=== PATIENT | female | born 1995 | race Caucasian/White ===

== ENCOUNTER 2017-04-08 23:12 | Inpatient (IN) | payer BC ==
[2017-04-08] MEDS ORDERED: Lidocaine 1% 50 ML MDV INJECT PRN (23:42)
[2017-04-08] MEDS ORDERED: Butorphanol 1 MG/ML SDV IVPUSH PRN (23:42)
[2017-04-08] MEDS ORDERED: Sodium Chloride 0.9% 2.5 ML Syringe FLUSH PRN (23:42)
[2017-04-08] MEDS ORDERED: Sodium Chloride 0.9% 10 ML Syringe FLUSH PRN (23:42)
[2017-04-08] MEDS ORDERED: Carboprost Tromethamine 250 MCG/1 ML Amp IM PRN (23:42)
[2017-04-08] MEDS ORDERED: Methylergonovine 0.2 MG/1 ML Amp IM PRN (23:42)
[2017-04-08] MEDS ORDERED: Water For Irrigation,Sterile 1,000 ML Container IRR PRN (23:42)
[2017-04-08] MEDS ORDERED: Misoprostol 200 MCG Tab PO PRN (23:42)
[2017-04-08] MEDS ORDERED: Nalbuphine 10 MG/1 ML Vial IVPUSH PRN (23:42)
[2017-04-08] MEDS ORDERED: Oxytocin/Lactated Ringers 30 UNIT/500 ML BAG IV SCH (23:45)
[2017-04-09] MEDS: Lactated Ringers 1,000 ML IV SCH ×3 (00:28→01:19)
[2017-04-09] MEDS ORDERED: fentaNYL 100 MCG/2 ML SDV ONE (00:40)
[2017-04-09] MEDS ORDERED: Ropivacaine HCl/PF 100 ML ONE (00:40)
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
[2017-04-09] MEDS ORDERED: Docusate Sodium 100 MG Cap PO PRN (03:44)
[2017-04-09] MEDS ORDERED: Bisacodyl 10 MG Supp RECTAL PRN (03:44)
[2017-04-09] MEDS ORDERED: Lanolin 100% Cream 7 GM Tube TOP PRN (03:44)
[2017-04-09] MEDS ORDERED: Benzocaine/Menthol 20%-0.5% Spray 78 GM Cannister TOP PRN (03:44)
[2017-04-09] MEDS ORDERED: Ibuprofen 400 MG Tab PO PRN (03:44)
[2017-04-09] MEDS ORDERED: Acetaminophen 500 MG Tab PO PRN (03:44)
[2017-04-09] MEDS ORDERED: Witch Hazel Medicated Pads 40/Jar TOP PRN (03:44)
--- NOTE | 2017-04-09 05:08 | PCM48HPAN ---
Post Anesthesia Note - EVALUATION WITHIN 48HRS OF ANESTHETIC Vital Signs in Normal Range: Yes Patient Participated in Evaluation: Yes Respiratory Function Stable: Yes Airway Patent: Yes Cardiovascular Function Stable: Yes Hydration Status Stable: Yes Pain Control Satisfactory: Yes Nausea and Vomiting Control Satisfactory: Yes Mental Status Recovered: Yes - COMMENTS/OBSERVATIONS Free Text/Narrative:: Pt post delivery with no complaints. No apparent anesthesia complications.
--- NOTE | 2017-04-09 05:19 | OR ---
SURGEON: Annette Biswas MD DATE OF PROCEDURE: 04/09/2017 PREOPERATIVE DIAGNOSES: 1. Term at 39 weeks gestation. 2. Spontaneous labor. POSTOPERATIVE DIAGNOSES: 1. Term at 39 weeks gestation. 2. Spontaneous labor. 3. Delivered. PROCEDURES: 1. Spontaneous vaginal delivery. 2. Repair of first-degree perineal laceration. ANESTHESIA: Epidural. ESTIMATED BLOOD LOSS: 150 mL. COMPLICATIONS: None. DISPOSITION: Mother and baby are stable in Labor and Delivery room, bonding. FINDINGS: Male . Weight 3090 g, scores 8 and 9 at one and five minutes respectively. Grossly normal placenta with 3-vessel cord. First-degree perineal laceration. BRIEF HISTORY: Alie is a 22-year-old, G3, P1, who presented on 04/08 at 38 weeks and 6 days gestation with history of regular contractions since 9 p.m.,denied vaginal bleeding, or leakage of fluid and reported movement. Uncomplicated care. GBS negative. On admission, she was found to be 4 cm dilated, 80% effaced, station -3 and was requesting an epidural. She received epidural for pain management and shortly afterward, artificial rupture of membranes was performed with clear amniotic fluid noted. She then progressed nicely to full dilatation within 2 hours of AROM. She commenced pushing, pushed well bringing the head down to a +4 station and was set up for delivery in a modified dorsal lithotomy position. DESCRIPTION OF PROCEDURE: She had a spontaneous vaginal delivery of a live male in direct occipital anterior position, no nuchal cord, clear amniotic fluid at delivery. Anterior and the posterior shoulders and the rest of the baby were delivered without difficulty. Baby was vigorous and cried spontaneously at . The baby was delivered onto the maternal abdomen with the nursery nurse attending to him. Delayed cord clamping was performed, then the cord was double clamped and subsequently cut by the father of the baby. With delivery of the , oxytocin infusion was commenced for active management of third stage of labor. The cord blood and gas samples were obtained. The placenta was delivered by controlled cord traction, appeared to be complete and intact. Uterine massage was performed. The uterus was found to be well contracted. Examination of the perineum revealed a midline first-degree perineal laceration which was repaired with 2-0 Vicryl suture, hemostatic post repair. Uterine massage was reperformed and the uterus was found to be well contracted. The patient tolerated the procedure well. Sponge, instrument, and needle counts were correct at the end of the delivery. DIEGO / JESSICA /[id number] MTDD
[2017-04-09] MEDS: Ibuprofen 800 MG Tab PO PRN ×2 (08:45→14:35)
[2017-04-09] MEDS: Acetaminophen 500 MG Tab PO PRN ×2 (11:22→22:17)
[2017-04-09] MEDS: oxyCODONE 5 MG Tab PO PRN ×2 (17:07→22:15)
[2017-04-10] MEDS: Acetaminophen 500 MG Tab PO PRN (07:34)
[2017-04-10 08:45] VITALS: BP 136/63
--- NOTE | 2017-04-10 11:13 | PCM.PNPP ---
- General Info Date of Service: 04/10/17 Functional Status: Reports: pain controlled, tolerating diet, ambulating, urinating - Review of Systems General: Denies: Fever, Weakness, Fatigue, Chills Pulmonary: Denies: shortness of breath, pleuritic chest pain Cardiovascular: Denies: Chest Pain, Palpitations, Dyspnea on Exertion Gastrointestinal: Reports: Abdominal pain (Afterpain whilst ) Genitourinary: Denies: dysuria, incontinence Neurological: Denies: Headache Psychiatric: Denies: depression - General Info Date of Service: 04/10/17 - Patient Data Vital Signs - most recent: Last Vital Signs Temp 36.6 C 04/10/17 08:00 Pulse 83 04/10/17 08:00 Resp 17 04/10/17 08:00 BP 136/63 04/10/17 08:00 Pulse Ox 97 04/10/17 08:00 Weight - most recent: 194 lb 7.163 oz Lab Results - last 24 hrs: Laboratory Results - last 24 hr 04/10/17 Range/Units 04:48 Hgb 10.6 L (12.0-16.0) g/dL Hct 34.0 L (36.0-46.0) % Med Orders - Current: Current Medications Acetaminophen (Tylenol Extra Strength) 500 mg PO Q4H PRN PRN Reason: Pain Acetaminophen (Tylenol Extra Strength) 1,000 mg PO Q4H PRN PRN Reason: Pain Last Admin: 04/10/17 07:34 Dose: 1,000 mg Benzocaine/Menthol (Dermoplast Pain Relief 20%-0.5% Fenton) 78 gm TOP ASDIRECTED PRN PRN Reason: Perineal Comfort Measure Last Admin: 04/09/17 07:25 Dose: 1 spray Bisacodyl (Dulcolax) 10 mg RECTAL .ONCE PRN PRN Reason: Constipation Docusate Sodium (Colace) 100 mg PO BID PRN PRN Reason: Constipation Last Admin: 04/10/17 07:33 Dose: 100 mg Emollient Ointment (Lansinoh Hpa) 0 gm TOP ASDIRECTED PRN PRN Reason: Sore Nipples Last Admin: 04/09/17 07:25 Dose: 1 gm Ibuprofen (Motrin) 400 mg PO Q4H PRN PRN Reason: Pain Ibuprofen (Motrin) 800 mg PO Q6H PRN PRN Reason: Pain Last Admin: 04/09/17 14:35 Dose: 800 mg Oxycodone HCl (Oxycodone) 5 mg PO Q2H PRN PRN Reason: Pain Last Admin: 04/09/17 22:15 Dose: 5 mg Witch Ana (Tucks) 1 pad TOP ASDIRECTED PRN PRN Reason: comfort care Last Admin: 04/09/17 07:26 Dose: 1 pad Discontinued Medications Butorphanol Tartrate (Stadol) 1 mg IVPUSH Q1H PRN PRN Reason: Pain Carboprost Tromethamine (Hemabate Ds) 250 mcg IM ASDIRECTED PRN PRN Reason: Post Hemorrhage Fentanyl (Sublimaze) Confirm Administered Dose 100 mcg .ROUTE .STK-MED ONE Stop: 04/09/17 00:41 Lactated Ringer's (Ringers, Lactated) 1,000 mls @ 150 mls/hr IV ASDIRECTED JALEN Last Admin: 04/09/17 01:19 Dose: 150 mls/hr Oxytocin/Lactated Ringer's (Pitocin In Lr 30 Units/500 Ml) 30 unit in 500 mls @ 2 mls/hr IV TITRATE JALEN; 2 MUNITS/MIN PRN Reason: Protocol Stop: 04/09/17 23:44 Ropivacaine (Naropin 0.2%) Confirm Administered Dose 100 mls @ as directed .ROUTE .STK-MED ONE Stop: 04/09/17 00:41 Lidocaine HCl (Xylocaine 1%) 50 ml INJECT .ONCE PRN PRN Reason: Laceration repair Methylergonovine Maleate (Methergine) 0.2 mg IM ASDIRECTED PRN PRN Reason: Post Hemorrhage Misoprostol (Cytotec) 200 mcg PO .ONCE PRN PRN Reason: Post Hemorrhage Nalbuphine HCl (Nubain) 10 mg IVPUSH Q1H PRN PRN Reason: Pain (severe 7-10) Stop: 04/09/17 01:43 Sodium Chloride (Saline Flush) 10 ml FLUSH ASDIRECTED PRN PRN Reason: Keep Vein Open Sodium Chloride (Saline Flush) 2.5 ml FLUSH ASDIRECTED PRN PRN Reason: Keep Vein Open Sterile Water (Sterile Water For Irrigation) 1,000 ml IRR ASDIRECTED PRN PRN Reason: delivery - Interaction Disposition, : [place] in Room with Family Infant Interaction: Holding Feeding: Breastfed Infant; Nursed Well Support Person: Significant Other - Recovery Exam Fundal Tone: Firm Fundal Level: 1 Fingerbreadths Below Umbilicus Fundal Placement: Midline Lochia Amount: Scant Lochia Color: Rubra/Red Perineum Description: Intact, Minimal Bruising/Swelling Episiotomy/Laceration: Approximated Bladder Status: Voiding Urinary Elimination: Voided - Exam General: alert, oriented Neck: supple Lungs: Clear to auscultation, Normal respiratory effort Cardiovascular: Regular Rate, Regular Rhythm Abdomen: bowel sounds present, soft, no tenderness, no distension Extremities: no calf tenderness, edema Skin: warm Psy/Mental Status: alert, normal affect, normal mood - Problem List & Annotations (1) Vaginal delivery SNOMED Code(s): 943854110 Code(s): O80 - ENCOUNTER FOR FULL-TERM UNCOMPLICATED DELIVERY Status: Acute Priority: Low Current Visit: No Onset Date: 02/14/14 - Problem List Review Problem List Initiated/Reviewed/Updated: Yes - Assessment Assessment:: PPD#1 s/p , stable, minimal Lochia. Afterpains controlled with simple analgesia Clinically stable for discharge today - Plan Plan:: Discharge instructions reviewed Nothing in the vagina for 6 weeks Bleeding and infection precautions reviewed Continue PNV. Preineal care reviewed Follow up in 2 and 6 weeks
== END 2017-04-10 14:10 | disposition home or self-care (01) | DRG 560 ==
LOC: MW.OBCHECK 23:12 → MW.OB 23:15 → MW.OBCHECK 23:42 → OBSVTOIN 04-09 03:17 → MW.OB 04-09 07:32
PROVIDERS: ADMIT Obstetrics & Gynecology; ATTEND Obstetrics & Gynecology
PROC: 10E0XZZ Delivery of Products of Conception, External Approach (ICD-10-PCS; principal; 2017-04-09)
PROC: 0HQ9XZZ Repair Perineum Skin, External Approach (ICD-10-PCS; 2017-04-09)
PROC: 10907ZC Drainage of Amniotic Fluid, Therapeutic from Products of Conception, Via Natural or Artificial Opening (ICD-10-PCS; 2017-04-09)
DX: O70.0 First degree perineal laceration during delivery (principal); Z3A.39 39 weeks gestation of pregnancy; Z37.0 Single live birth
CPT/HCPCS: 01967; 36415; 51703; 59025; 85014; 85018; 85027; 86850; 86900; 86901; A9270-GY; J7120

== ENCOUNTER 2019-01-20 10:27 | Emergency (ER) | payer BC ==
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
--- NOTE | 2019-01-20 11:33 | CR ---
INDICATION: fell last night COMPARISON: None. FINDINGS: AP and lateral views of the left ankle demonstrate normal osseous mineralization and alignment. No fracture or dislocation. The ankle mortise is intact. Soft tissues are unremarkable. IMPRESSION: No acute osseous abnormality. Dictated by Sathish Go MD @ 01/20/2019 11:30:59 AM Dictated by: Sathish Go MD @ 01/20/2019 11:31:03 (Electronically Signed)
[2019-01-20] MEDS ORDERED: Ibuprofen 800 MG Tab PO ONE (11:57)
[2019-01-20 12:19] VITALS: BP 132/81
== END 2019-01-20 12:20 | disposition home or self-care (01) ==
LOC: MW.ED 10:27
DX: S99.912A Unspecified injury of left ankle, initial encounter (principal); Z88.0 Allergy status to penicillin; Z79.899 Other long term (current) drug therapy; W10.9XXA Fall (on) (from) unspecified stairs and steps, initial encounter
CPT/HCPCS: 73600; 99283; A9270

== ENCOUNTER 2021-07-07 00:35 | Inpatient (IN) | payer OTHER ==
[2021-07-07] MEDS ORDERED: Sodium Chloride 0.9% 2.5 ML Syringe FLUSH PRN (01:37)
[2021-07-07] MEDS ORDERED: Water For Irrigation,Sterile 1,000 ML Container IRR PRN (01:37)
[2021-07-07] MEDS ORDERED: Sodium Chloride 0.9% 10 ML Syringe FLUSH PRN (01:37)
[2021-07-07] MEDS ORDERED: Methylergonovine 0.2 MG/1 ML Amp IM PRN (01:37)
[2021-07-07] MEDS ORDERED: Lidocaine 1% 50 ML MDV INJECT PRN (01:37)
[2021-07-07] MEDS ORDERED: Misoprostol 200 MCG Tab PO PRN (01:37)
[2021-07-07] MEDS ORDERED: Butorphanol 1 MG/ML SDV IVPUSH PRN (01:37)
[2021-07-07] MEDS ORDERED: Sodium Chloride 0.9% 10 ML SDV IV PRN (01:37)
[2021-07-07] MEDS ORDERED: Ondansetron 4 MG/2 ML SDV IVPUSH PRN (01:37)
[2021-07-07] MEDS ORDERED: Tranexamic Acid 1,000 MG in Sodium Chloride 0.9% 100 ML IV PRN (01:37)
[2021-07-07] MEDS ORDERED: Carboprost Tromethamine 250 MCG/1 ML Amp IM PRN (01:37)
[2021-07-07] MEDS ORDERED: Nalbuphine 10 MG/1 ML Vial IVPUSH PRN (01:37)
[2021-07-07] MEDS ORDERED: Oxytocin/0.9 % Sodium Chloride 30 UNIT/500 ML BAG IV SCH (01:45)
[2021-07-07] MEDS ORDERED: Lactated Ringers 1,000 ML IV SCH (01:45)
[2021-07-07] MEDS ORDERED: Oxytocin/0.9 % Sodium Chloride 30 UNIT/500 ML BAG ONE (01:47)
[2021-07-07] MEDS ORDERED: Ibuprofen 800 MG Tab ONE (02:18)
[2021-07-07] MEDS: Ibuprofen 800 MG Tab PO PRN ×3 (02:19→20:12)
--- NOTE | 2021-07-07 02:32 | PCM.DEL ---
<Domi Molina - Last Filed: 07/07/21 02:27> L & D Note - General Info Date of Service: 07/07/21 Mother's Due Date: 07/11/21 - Delivery Note Labor: Spontaneous Delivery Outcome: Livebirth Infant Delivery Method: Spontaneous Vaginal Delivery-Single Presentation: Right Occiput Anterior (LYLE) Nuchal Cord: None Anesthesia Type: None Anesthetic: Lidocaine (Xylocaine) 1% Plain Amniotic Fluid Description: Clear Episiotomy Type: None Laceration: 2nd Degree Placenta: Intact, Spontaneous Cord: 3 Vessels Estimated Blood Loss: 300 Resuscitation Needed: No Nelson: Bulb Syringe Score 1 min: 8 Score 5 min: 9 Delivery Comments (Free Text/Narrative):: 26-year-old s/p uncomplicated spontaneous vaginal delivery. Plans to breastfeed. Blood type O+, Rubella immune, and GBS negative. Apgars 8 & 9, weight 3310 grams. - General Info Date of Service: 07/07/21 Admission Dx/Problem (Free Text): Labor Functional Status: Reports: Pain Controlled - Patient Data Weight - Most Recent: 120.202 kg I&O - Last 24 Hours: Intake & Output 07/06/21 07/06/21 07/07/21 14:59 22:59 06:59 Intake Total 300 Balance 300 Lab Results Last 24 Hours: Laboratory Results - last 24 hr 07/07/21 Range/Units 01:55 WBC 11.32 H (4.0-11.0) K/uL RBC 4.42 (4.30-5.90) M/uL Hgb 12.5 (12.0-16.0) g/dL Hct 37.9 (36.0-46.0) % MCV 85.7 (80.0-98.0) fL MCH 28.3 (27.0-32.0) pg MCHC 33.0 (31.0-37.0) g/dL RDW Std Deviation 44.5 (28.0-62.0) fl RDW Coeff of Rain 14 (11.0-15.0) % Plt Count 228 (150-400) K/uL MPV 10.50 (7.40-12.00) fL Nucleated RBC % 0.0 /100WBC Nucleated RBCs # 0 K/uL Med Orders - Current: Current Medications Butorphanol Tartrate (Butorphanol 1 Mg/Ml Sdv) 1 mg IVPUSH Q1H PRN PRN Reason: Pain (severe 7-10) Carboprost Tromethamine (Carboprost Tromethamine 250 Mcg/1 Ml Amp) 250 mcg IM ASDIRECTED PRN PRN Reason: Post Hemorrhage Oxytocin/Sodium Chloride (Oxytocin 30 Unit/500 Ml-Ns) 30 unit in 500 mls @ 999 mls/hr IV TITRATE [facility] Last Admin: 07/07/21 01:54 Dose: 999 mls/hr Documented by: Tranexamic Acid 1,000 mg/ (Sodium Chloride) 110 mls @ 660 mls/hr IV ONETIME PRN PRN Reason: Bleeding Lactated Ringer's (Ringers, Lactated) 1,000 mls @ 150 mls/hr IV ASDIRECTED [facility] Last Admin: 07/07/21 01:40 Dose: 999 mls/hr Documented by: Lidocaine HCl (Lidocaine 1% 50 Ml Mdv) 50 ml INJECT ONETIME PRN PRN Reason: Laceration repair Last Admin: 07/07/21 02:03 Dose: 50 ml Documented by: Methylergonovine Maleate (Methylergonovine 0.2 Mg/1 Ml Amp) 0.2 mg IM ASDIRECTED PRN PRN Reason: Post Hemorrhage Misoprostol (Misoprostol 200 Mcg Tab) 200 mcg PO ONETIME PRN PRN Reason: Post Hemorrhage Nalbuphine HCl (Nalbuphine 10 Mg/1 Ml Vial) 10 mg IVPUSH Q1H PRN PRN Reason: Pain (severe 7-10) Ondansetron HCl (Ondansetron 4 Mg/2 Ml Sdv) 4 mg IVPUSH Q4H PRN PRN Reason: Nausea/Vomiting Sodium Chloride (Sodium Chloride 0.9% 10 Ml Syringe) 10 ml FLUSH ASDIRECTED PRN PRN Reason: Keep Vein Open Sodium Chloride (Sodium Chloride 0.9% 2.5 Ml Syringe) 2.5 ml FLUSH ASDIRECTED PRN PRN Reason: Keep Vein Open Sodium Chloride (Sodium Chloride 0.9% 10 Ml Sdv) 10 ml IV ASDIRECTED PRN PRN Reason: IV Use Sterile Water (Water For Irrigation,Sterile 1,000 Ml Container) 1,000 ml IRR ASDIRECTED PRN PRN Reason: delivery Discontinued Medications Oxytocin/Sodium Chloride (Oxytocin 30 Unit/500 Ml-Ns) Confirm Administered Dose 30 unit in 500 mls @ as directed .ROUTE .STK-MED ONE Stop: 07/07/21 01:48 Ibuprofen (Ibuprofen 800 Mg Tab) Confirm Administered Dose 800 mg .ROUTE .STK- MED ONE Stop: 07/07/21 02:19 - Exam Quality Assessment: Supplemental Oxygen - Problem List & Annotations (1) Normal spontaneous vaginal delivery SNOMED Code(s): 44028108, 130540666 Code(s): O80 - ENCOUNTER FOR FULL-TERM UNCOMPLICATED DELIVERY Status: Acute Current Visit: Yes - Problem List Review Problem List Initiated/Reviewed/Updated: Yes - Assessment Assessment:: 26-year-old s/p uncomplicated spontaneous vaginal delivery. - Plan Plan:: * Fundal massages for 2 hours * Continue to monitor bleeding * Plans to breastfeed * Blood type O+, Rubella immune, and GBS negative * Apgars 8 & 9, weight 3310 grams. <Malathi Montana - Last Filed: 07/07/21 02:40> L & D Note - Delivery Note Laceration: Labial (left, hemostatic without repair) Suture type: Vicryl Suture size: 3-0 - Patient Data I&O - Last 24 Hours: Intake & Output 07/06/21 07/06/21 07/07/21 14:59 22:59 06:59 Intake Total 300 Balance 300 Lab Results Last 24 Hours: Laboratory Results - last 24 hr 07/07/21 Range/Units 01:55 WBC 11.32 H (4.0-11.0) K/uL RBC 4.42 (4.30-5.90) M/uL Hgb 12.5 (12.0-16.0) g/dL Hct 37.9 (36.0-46.0) % MCV 85.7 (80.0-98.0) fL MCH 28.3 (27.0-32.0) pg MCHC 33.0 (31.0-37.0) g/dL RDW Std Deviation 44.5 (28.0-62.0) fl RDW Coeff of Rain 14 (11.0-15.0) % Plt Count 228 (150-400) K/uL MPV 10.50 (7.40-12.00) fL Nucleated RBC % 0.0 /100WBC Nucleated RBCs # 0 K/uL Med Orders - Current: Current Medications Acetaminophen (Acetaminophen 500 Mg Tab) 1,000 mg PO Q6H PRN PRN Reason: Pain (mild 1-3) Benzocaine/Menthol (Benzocaine/Menthol 20%-0.5% [place] 78 Gm Cannister) 78 gm TOP ASDIRECTED PRN PRN Reason: Perineal Comfort Measure Bisacodyl (Bisacodyl 10 Mg Supp) 10 mg RECTAL ONETIME PRN PRN Reason: Constipation Butorphanol Tartrate (Butorphanol 1 Mg/Ml Sdv) 1 mg IVPUSH Q1H PRN PRN Reason: Pain (severe 7-10) Carboprost Tromethamine (Carboprost Tromethamine 250 Mcg/1 Ml Amp) 250 mcg IM ASDIRECTED PRN PRN Reason: Post Hemorrhage Docusate Sodium (Docusate Sodium 100 Mg Cap) 100 mg PO Q12H PRN PRN Reason: Constipation Emollient Ointment (Lanolin 100% Cream 7 Gm Tube) 0 gm TOP ASDIRECTED PRN PRN Reason: Sore Nipples Oxytocin/Sodium Chloride (Oxytocin 30 Unit/500 Ml-Ns) 30 unit in 500 mls @ 999 mls/hr IV TITRATE [facility] Last Admin: 07/07/21 01:54 Dose: 999 mls/hr Documented by: Tranexamic Acid 1,000 mg/ (Sodium Chloride) 110 mls @ 660 mls/hr IV ONETIME PRN PRN Reason: Bleeding Lactated Ringer's (Ringers, Lactated) 1,000 mls @ 150 mls/hr IV ASDIRECTED [facility] Last Admin: 07/07/21 01:40 Dose: 999 mls/hr Documented by: Ibuprofen (Ibuprofen 800 Mg Tab) 800 mg PO Q8H PRN PRN Reason: Pain (mild 1-3) Lidocaine HCl (Lidocaine 1% 50 Ml Mdv) 50 ml INJECT ONETIME PRN PRN Reason: Laceration repair Last Admin: 07/07/21 02:03 Dose: 50 ml Documented by: Methylergonovine Maleate (Methylergonovine 0.2 Mg/1 Ml Amp) 0.2 mg IM ASDIRECTED PRN PRN Reason: Post Hemorrhage Misoprostol (Misoprostol 200 Mcg Tab) 200 mcg PO ONETIME PRN PRN Reason: Post Hemorrhage Nalbuphine HCl (Nalbuphine 10 Mg/1 Ml Vial) 10 mg IVPUSH Q1H PRN PRN Reason: Pain (severe 7-10) Ondansetron HCl (Ondansetron 4 Mg/2 Ml Sdv) 4 mg IVPUSH Q4H PRN PRN Reason: Nausea/Vomiting Oxycodone HCl (Oxycodone 5 Mg Tab) 5 mg PO Q2H PRN PRN Reason: Pain (severe 7-10) Sodium Chloride (Sodium Chloride 0.9% 10 Ml Syringe) 10 ml FLUSH ASDIRECTED PRN PRN Reason: Keep Vein Open Sodium Chloride (Sodium Chloride 0.9% 2.5 Ml Syringe) 2.5 ml FLUSH ASDIRECTED PRN PRN Reason: Keep Vein Open Sodium Chloride (Sodium Chloride 0.9% 10 Ml Sdv) 10 ml IV ASDIRECTED PRN PRN Reason: IV Use Sterile Water (Water For Irrigation,Sterile 1,000 Ml Container) 1,000 ml IRR ASDIRECTED PRN PRN Reason: delivery Witch Ana (Witch Ana Medicated Pads 40/Jar) 1 pad TOP ASDIRECTED PRN PRN Reason: comfort care Discontinued Medications Oxytocin/Sodium Chloride (Oxytocin 30 Unit/500 Ml-Ns) Confirm Administered Dose 30 unit in 500 mls @ as directed .ROUTE .STK-MED ONE Stop: 07/07/21 01:48 Ibuprofen (Ibuprofen 800 Mg Tab) Confirm Administered Dose 800 mg .ROUTE .STK- MED ONE Stop: 07/07/21 02:19 - Problem List & Annotations (1) Vaginal delivery SNOMED Code(s): 622620981 Code(s): O80 - ENCOUNTER FOR FULL-TERM UNCOMPLICATED DELIVERY Status: Acute Priority: Low Current Visit: No Onset Date: 02/14/14 - My Orders Last 24 Hours: My Active Orders 07/07/21 01:37 Patient Status [ADT] Routine Heart Tones [RC] CONTINUOUS Non Stress Test [RC] PER UNIT ROUTINE May Shower [RC] ASDIRECTED Notify Provider [RC] PRN Up ad Effie [RC] ASDIRECTED Vaginal Exam [RC] PRN Vital Signs [RC] PER UNIT ROUTINE Butorphanol [Stadol] 1 mg IVPUSH Q1H PRN Carboprost Tromethamine [Hemabate DS] 250 mcg IM ASDIRECTED PRN Lidocaine 1% [Xylocaine 1%] 50 ml INJECT ONETIME PRN Methylergonovine [Methergine] 0.2 mg IM ASDIRECTED PRN Nalbuphine [Nubain] 10 mg IVPUSH Q1H PRN Ondansetron [Zofran] 4 mg IVPUSH Q4H PRN Sodium Chloride 0.9% [Normal Saline] 10 ml IV ASDIRECTED PRN Sodium Chloride 0.9% [Saline Flush] 10 ml FLUSH ASDIRECTED PRN Sodium Chloride 0.9% [Saline Flush] 2.5 ml FLUSH ASDIRECTED PRN Tranexamic Acid [Cyklokapron] 1,000 mg Sodium Chloride 0.9% [Normal Saline] 100 ml IV ONETIME Water For Irrigation,Sterile [Sterile Water for Irrigation] 1,000 ml IRR ASDIRECTED PRN miSOPROStoL [Cytotec] 200 mcg PO ONETIME PRN Scalp Electrode [WOMSER] Per Unit Routine Peripheral IV Insertion Adult [OM.PC] Routine Resuscitation Status Routine 07/07/21 01:45 Lactated Ringers [Ringers, Lactated] 1,000 ml IV ASDIRECTED Oxytocin/0.9 % Sodium Chloride [Oxytocin 30 Unit/500 ML-NS] 30 unit in 500 ml IV TITRATE 07/07/21 01:55 RPR (SYPHILIS SERO) W/ RFLX [REF] Routine TYPE AND SCREEN [BBK] Routine 07/07/21 02:34 Patient Status [ADT] Routine Cooling Warming Measures [RC] ASDIRECTED May Shower [RC] ASDIRECTED Notify Provider Vital Signs [RC] ASDIRECTED Up ad Effie [RC] ASDIRECTED Vital Signs [RC] PER UNIT ROUTINE Acetaminophen [Tylenol Extra Strength] 1,000 mg PO Q6H PRN Benzocaine/Menthol [Dermoplast Pain Relief 20%-0.5% [place]] 78 gm TOP ASDIRECTED PRN Docusate Sodium [Colace] 100 mg PO Q12H PRN Ibuprofen [Motrin] 800 mg PO Q8H PRN Lanolin [Lansinoh HPA] See Dose Instructions TOP ASDIRECTED PRN bisacodyL [Dulcolax] 10 mg RECTAL ONETIME PRN oxyCODONE 5 mg PO Q2H PRN witch Ana [Tucks] 1 pad TOP ASDIRECTED PRN Assess Lochia [WOMSER] Per Unit Routine Assess Uterine Involution [WOMSER] Per Unit Routine Breast Pump [WOMSER] Per Unit Routine Ice Therapy [OM.PC] Per Unit Routine Perineal Care [OM.PC] Per Unit Routine Peripheral IV Discontinue [OM.PC] Routine Sitz Bath [OM.PC] Per Unit Routine 07/07/21 Breakfast Regular Diet [DIET] 07/08/21 05:11 HEMOGLOBIN/HEMATOCRIT,HH [HEME] Timed - Plan Plan:: I arrived to the room with the infant's head delivered, and assisted with delivery of the remainder of the body and the placenta. I have reviewed and agree with the above. Please see dictation #[id number] for further details.
[2021-07-07] MEDS ORDERED: Docusate Sodium 100 MG Cap PO PRN (02:34)
[2021-07-07] MEDS ORDERED: Bisacodyl 10 MG Supp RECTAL PRN (02:34)
[2021-07-07] MEDS ORDERED: oxyCODONE 5 MG Tab PO PRN (02:34)
[2021-07-07] MEDS ORDERED: Lanolin 100% Cream 7 GM Tube TOP PRN (02:34)
[2021-07-07] MEDS: Witch Hazel Medicated Pads 40/Jar TOP PRN (03:42)
[2021-07-07] MEDS: Benzocaine/Menthol 20%-0.5% Spray 78 GM Cannister TOP PRN (03:43)
--- NOTE | 2021-07-07 03:53 | OR ---
SURGEON: Malathi Montana MD DATE OF PROCEDURE: 07/07/2021 PREOPERATIVE DIAGNOSES: 1. A 26-year-old, G4, P 2-0-1-2 at 39 weeks and 3 days gestation. 2. Labor and spontaneous rupture of membranes. 3. GBS negative. 4. Obesity. POSTOPERATIVE DIAGNOSES: 1. A 26-year-old, G4, P 3-0-1-3 at 39 weeks and 3 days gestation. 2. Labor and spontaneous rupture of membranes. 3. GBS negative. 4. Obesity. PROCEDURE: Spontaneous vaginal delivery and repair of second-degree perineal laceration. PRIMARY SURGEON: Malathi Montana. RAMP AGENT: Domi Molina, Medical Student. ANESTHESIA: Lidocaine. FINDINGS: Live female in cephalic presentation. score of 8 and 9 at one and five minutes respectively. Weight 3310 g. Placenta intact with 3-vessel cord. Second-degree perineal laceration and left labial lacerations. INDICATIONS: This is a 26-year-old, G4, P 2-0-1-2 who presented at 39 weeks and 3 days gestation, complaining of contractions and rupture of membranes while traveling to the hospital. Upon presentation, her cervix was found to be 8-9 cm dilated. An IV was inserted and labs were obtained. I was called to the room. DESCRIPTION OF PROCEDURE: I arrived to the room with the 's head delivered. I assisted the medical student in delivery of the remainder of the body. The infant was placed on the maternal abdomen. After approximately 2 minutes, the cord was clamped and cut. The cord blood was obtained. The placenta then delivered intact with 3-vessel cord via the Faria-Mondragon maneuver. The perineum was inspected and a second- degree perineal laceration and left labial lacerations were noted. The second- degree perineal laceration was repaired to anatomy and hemostasis with 3-0 Vicryl after infiltration with lidocaine. Left labial laceration was hemostatic without repair. Fundus was firm below the umbilicus with minimal bleeding. The patient and tolerated the delivery well. [id number] / MODL /[id number] MTDD
[2021-07-07] MEDS: Acetaminophen 500 MG Tab PO PRN ×2 (05:27→15:27)
--- NOTE | 2021-07-07 07:40 | PCM.PNPP ---
- General Info Date of Service: 07/06/21 Admission Dx/Problem (Free Text): Labor Subjective Update: Feeling well. C/o mild lower back pain. Ambulating well. Some burning while urinating. Has not eaten, but ordered breakfast. Functional Status: Reports: Pain Controlled - Review of Systems General: Reports: No Symptoms HEENT: Reports: No Symptoms Pulmonary: Reports: No Symptoms Cardiovascular: Reports: No Symptoms Gastrointestinal: Reports: No Symptoms Genitourinary: Reports: No Symptoms Musculoskeletal: Reports: No Symptoms Skin: Reports: No Symptoms Neurological: Reports: No Symptoms Psychiatric: Reports: No Symptoms - General Info Date of Service: 07/07/21 - Patient Data Vital Signs - Most Recent: Last Vital Signs Temp 36.8 C 07/07/21 05:50 Pulse 89 07/07/21 05:50 Resp 18 07/07/21 05:50 BP 121/73 07/07/21 05:50 Pulse Ox 94 L 07/07/21 05:50 Weight - Most Recent: 120.202 kg I&O - Last 24 Hours: Intake & Output 07/06/21 07/07/21 07/07/21 22:59 06:59 14:59 Intake Total 300 Balance 300 Lab Results - Last 24 Hours: Laboratory Results - last 24 hr 07/07/21 07/07/21 07/07/21 Range/Units 01:55 01:55 01:59 WBC 11.32 H (4.0-11.0) K/uL RBC 4.42 (4.30-5.90) M/uL Hgb 12.5 (12.0-16.0) g/dL Hct 37.9 (36.0-46.0) % MCV 85.7 (80.0-98.0) fL MCH 28.3 (27.0-32.0) pg MCHC 33.0 (31.0-37.0) g/dL RDW Std Deviation 44.5 (28.0-62.0) fl RDW Coeff of Rain 14 (11.0-15.0) % Plt Count 228 (150-400) K/uL MPV 10.50 (7.40-12.00) fL Nucleated RBC % 0.0 /100WBC Nucleated RBCs # 0 K/uL SARS-CoV-2 RNA (SHAGUFTA) NEGATIVE (NEGATIVE) Blood Type O POSITIVE Antibody Screen NEGATIVE Med Orders - Current: Current Medications Acetaminophen (Acetaminophen 500 Mg Tab) 1,000 mg PO Q6H PRN PRN Reason: Pain (mild 1-3) Last Admin: 07/07/21 05:27 Dose: 1,000 mg Documented by: Benzocaine/Menthol (Benzocaine/Menthol 20%-0.5% [place] 78 Gm Cannister) 78 gm TOP ASDIRECTED PRN PRN Reason: Perineal Comfort Measure Last Admin: 07/07/21 03:43 Dose: 1 canister Documented by: Bisacodyl (Bisacodyl 10 Mg Supp) 10 mg RECTAL ONETIME PRN PRN Reason: Constipation Butorphanol Tartrate (Butorphanol 1 Mg/Ml Sdv) 1 mg IVPUSH Q1H PRN PRN Reason: Pain (severe 7-10) Carboprost Tromethamine (Carboprost Tromethamine 250 Mcg/1 Ml Amp) 250 mcg IM ASDIRECTED PRN PRN Reason: Post Hemorrhage Docusate Sodium (Docusate Sodium 100 Mg Cap) 100 mg PO Q12H PRN PRN Reason: Constipation Emollient Ointment (Lanolin 100% Cream 7 Gm Tube) 0 gm TOP ASDIRECTED PRN PRN Reason: Sore Nipples Last Admin: 07/07/21 03:42 Dose: 1 tube Documented by: Oxytocin/Sodium Chloride (Oxytocin 30 Unit/500 Ml-Ns) 30 unit in 500 mls @ 999 mls/hr IV TITRATE [facility] Last Admin: 07/07/21 01:54 Dose: 999 mls/hr Documented by: Tranexamic Acid 1,000 mg/ (Sodium Chloride) 110 mls @ 660 mls/hr IV ONETIME PRN PRN Reason: Bleeding Lactated Ringer's (Ringers, Lactated) 1,000 mls @ 150 mls/hr IV ASDIRECTED [facility] Last Admin: 07/07/21 01:40 Dose: 999 mls/hr Documented by: Ibuprofen (Ibuprofen 800 Mg Tab) 800 mg PO Q8H PRN PRN Reason: Pain (mild 1-3) Last Admin: 07/07/21 02:19 Dose: 800 mg Documented by: Lidocaine HCl (Lidocaine 1% 50 Ml Mdv) 50 ml INJECT ONETIME PRN PRN Reason: Laceration repair Last Admin: 07/07/21 02:03 Dose: 50 ml Documented by: Methylergonovine Maleate (Methylergonovine 0.2 Mg/1 Ml Amp) 0.2 mg IM ASDIRECTED PRN PRN Reason: Post Hemorrhage Misoprostol (Misoprostol 200 Mcg Tab) 200 mcg PO ONETIME PRN PRN Reason: Post Hemorrhage Nalbuphine HCl (Nalbuphine 10 Mg/1 Ml Vial) 10 mg IVPUSH Q1H PRN PRN Reason: Pain (severe 7-10) Ondansetron HCl (Ondansetron 4 Mg/2 Ml Sdv) 4 mg IVPUSH Q4H PRN PRN Reason: Nausea/Vomiting Oxycodone HCl (Oxycodone 5 Mg Tab) 5 mg PO Q2H PRN PRN Reason: Pain (severe 7-10) Sodium Chloride (Sodium Chloride 0.9% 10 Ml Syringe) 10 ml FLUSH ASDIRECTED PRN PRN Reason: Keep Vein Open Sodium Chloride (Sodium Chloride 0.9% 2.5 Ml Syringe) 2.5 ml FLUSH ASDIRECTED PRN PRN Reason: Keep Vein Open Sodium Chloride (Sodium Chloride 0.9% 10 Ml Sdv) 10 ml IV ASDIRECTED PRN PRN Reason: IV Use Sterile Water (Water For Irrigation,Sterile 1,000 Ml Container) 1,000 ml IRR ASDIRECTED PRN PRN Reason: delivery Witch Ana (Witch Ana Medicated Pads 40/Jar) 1 pad TOP ASDIRECTED PRN PRN Reason: comfort care Last Admin: 07/07/21 03:42 Dose: 1 tub Documented by: Discontinued Medications Oxytocin/Sodium Chloride (Oxytocin 30 Unit/500 Ml-Ns) Confirm Administered Dose 30 unit in 500 mls @ as directed .ROUTE .STK-MED ONE Stop: 07/07/21 01:48 Ibuprofen (Ibuprofen 800 Mg Tab) Confirm Administered Dose 800 mg .ROUTE .STK- MED ONE Stop: 07/07/21 02:19 - Interaction Disposition, : in Room with Family Interaction: Holding Infant Feeding: Breastfed Infant; Nursed Well Support Person: Significant Other - Recovery Exam Fundal Tone: Firm Episiotomy/Laceration: None Bladder Status: Voiding - Exam General: Alert, Oriented HEENT: Pupils Equal, Pupils Reactive, EOMI Neck: Supple Lungs: Clear to Auscultation, Normal Respiratory Effort Cardiovascular: Regular Rate, Regular Rhythm GI/Abdominal Exam: Normal Bowel Sounds, Soft, Tender Extremities: Normal Inspection, Normal Range of Motion, No Pedal Edema, Normal Capillary Refill Skin: Warm, Dry, Intact Neurological: No New Focal Deficit Psy/Mental Status: Alert, Normal Affect, Normal Mood - Problem List & Annotations (1) Normal spontaneous vaginal delivery SNOMED Code(s): 51248362, 035347757 Code(s): O80 - ENCOUNTER FOR FULL-TERM UNCOMPLICATED DELIVERY Status: Acute Current Visit: Yes - Problem List Review Problem List Initiated/Reviewed/Updated: Yes - Assessment Assessment:: 26-year-old s/p uncomplicated spontaneous vaginal delivery. hbg 11.3. no new concerns. - Plan Plan:: * Continue to monitor bleeding * Encourage ambulation * Pain medication as needed for back pain * Blood type O+, Rubella immune, and GBS negative
[2021-07-08] MEDS: Ibuprofen 800 MG Tab PO PRN ×2 (05:21→12:29)
[2021-07-08] MEDS: Acetaminophen 500 MG Tab PO PRN ×2 (05:24→19:46)
--- NOTE | 2021-07-08 07:51 | PCM.PNPP ---
<Domi Molina - Last Filed: 07/08/21 08:08> - General Info Date of Service: 07/08/21 Admission Dx/Problem (Free Text): Labor Subjective Update: Feeling well. Ambulating, eating, and urinating well. Feels stressed because has to redo cardiac exam. Had questions about probiotics and cardiac testing for . - Review of Systems General: Reports: No Symptoms HEENT: Reports: No Symptoms Pulmonary: Reports: No Symptoms Cardiovascular: Reports: No Symptoms Gastrointestinal: Reports: No Symptoms Genitourinary: Reports: No Symptoms Musculoskeletal: Reports: No Symptoms Skin: Reports: No Symptoms Neurological: Reports: No Symptoms Psychiatric: Reports: No Symptoms - General Info Date of Service: 07/08/21 - Patient Data Vital Signs - Most Recent: Last Vital Signs Temp 36.6 C 07/07/21 21:00 Pulse 87 07/08/21 05:45 Resp 18 07/08/21 05:45 BP 137/82 07/08/21 05:45 Pulse Ox 97 07/08/21 05:45 Weight - Most Recent: 120.202 kg Lab Results - Last 24 Hours: Laboratory Results - last 24 hr 07/08/21 Range/Units 04:35 Hgb 11.5 L (12.0-16.0) g/dL Hct 35.5 L (36.0-46.0) % Med Orders - Current: Current Medications Acetaminophen (Acetaminophen 500 Mg Tab) 1,000 mg PO Q6H PRN PRN Reason: Pain (mild 1-3) Last Admin: 07/08/21 05:24 Dose: 1,000 mg Documented by: Benzocaine/Menthol (Benzocaine/Menthol 20%-0.5% Sch[place]ield 78 Gm Cannister) 78 gm TOP ASDIRECTED PRN PRN Reason: Perineal Comfort Measure Last Admin: 07/07/21 03:43 Dose: 1 canister Documented by: Bisacodyl (Bisacodyl 10 Mg Supp) 10 mg RECTAL ONETIME PRN PRN Reason: Constipation Butorphanol Tartrate (Butorphanol 1 Mg/Ml Sdv) 1 mg IVPUSH Q1H PRN PRN Reason: Pain (severe 7-10) Carboprost Tromethamine (Carboprost Tromethamine 250 Mcg/1 Ml Amp) 250 mcg IM ASDIRECTED PRN PRN Reason: Post Hemorrhage Docusate Sodium (Docusate Sodium 100 Mg Cap) 100 mg PO Q12H PRN PRN Reason: Constipation Emollient Ointment (Lanolin 100% Cream 7 Gm Tube) 0 gm TOP ASDIRECTED PRN PRN Reason: Sore Nipples Last Admin: 07/07/21 03:42 Dose: 1 tube Documented by: Oxytocin/Sodium Chloride (Oxytocin 30 Unit/500 Ml-Ns) 30 unit in 500 mls @ 999 mls/hr IV TITRATE [facility] Last Admin: 07/07/21 01:54 Dose: 999 mls/hr Documented by: Tranexamic Acid 1,000 mg/ (Sodium Chloride) 110 mls @ 660 mls/hr IV ONETIME PRN PRN Reason: Bleeding Lactated Ringer's (Ringers, Lactated) 1,000 mls @ 150 mls/hr IV ASDIRECTED [facility] Last Admin: 07/07/21 01:40 Dose: 999 mls/hr Documented by: Ibuprofen (Ibuprofen 800 Mg Tab) 800 mg PO Q8H PRN PRN Reason: Pain (mild 1-3) Last Admin: 07/08/21 05:21 Dose: 800 mg Documented by: Lidocaine HCl (Lidocaine 1% 50 Ml Mdv) 50 ml INJECT ONETIME PRN PRN Reason: Laceration repair Last Admin: 07/07/21 02:03 Dose: 50 ml Documented by: Methylergonovine Maleate (Methylergonovine 0.2 Mg/1 Ml Amp) 0.2 mg IM ASDIRECTED PRN PRN Reason: Post Hemorrhage Misoprostol (Misoprostol 200 Mcg Tab) 200 mcg PO ONETIME PRN PRN Reason: Post Hemorrhage Nalbuphine HCl (Nalbuphine 10 Mg/1 Ml Vial) 10 mg IVPUSH Q1H PRN PRN Reason: Pain (severe 7-10) Ondansetron HCl (Ondansetron 4 Mg/2 Ml Sdv) 4 mg IVPUSH Q4H PRN PRN Reason: Nausea/Vomiting Oxycodone HCl (Oxycodone 5 Mg Tab) 5 mg PO Q2H PRN PRN Reason: Pain (severe 7-10) Sodium Chloride (Sodium Chloride 0.9% 10 Ml Syringe) 10 ml FLUSH ASDIRECTED PRN PRN Reason: Keep Vein Open Sodium Chloride (Sodium Chloride 0.9% 2.5 Ml Syringe) 2.5 ml FLUSH ASDIRECTED PRN PRN Reason: Keep Vein Open Sodium Chloride (Sodium Chloride 0.9% 10 Ml Sdv) 10 ml IV ASDIRECTED PRN PRN Reason: IV Use Sterile Water (Water For Irrigation,Sterile 1,000 Ml Container) 1,000 ml IRR ASDIRECTED PRN PRN Reason: delivery Witch Ana (Witch Ana Medicated Pads 40/Jar) 1 pad TOP ASDIRECTED PRN PRN Reason: comfort care Last Admin: 07/07/21 03:42 Dose: 1 tub Documented by: Discontinued Medications Oxytocin/Sodium Chloride (Oxytocin 30 Unit/500 Ml-Ns) Confirm Administered Dose 30 unit in 500 mls @ as directed .ROUTE .STK-MED ONE Stop: 07/07/21 01:48 Last Admin: 07/08/21 07:17 Dose: Not Given Documented by: Ibuprofen (Ibuprofen 800 Mg Tab) Confirm Administered Dose 800 mg .ROUTE .STK- MED ONE Stop: 07/07/21 02:19 Last Admin: 07/08/21 07:18 Dose: Not Given Documented by: - Interaction Disposition, : [place] in Room with Family Infant Interaction: Holding Infant Feeding: Breastfed Infant; Nursed Well Support Person: Significant Other - Recovery Exam Fundal Tone: Firm Fundal Level: At Umbilicus Fundal Placement: Midline Other Perinuem Description: 2nd degree laceration Bladder Status: Voiding Urinary Elimination: Voided - Exam General: Alert, Oriented HEENT: Pupils Equal, Pupils Reactive Neck: Supple, Trachea Midline, No JVD Lungs: Clear to Auscultation, Normal Respiratory Effort Cardiovascular: Regular Rate, Regular Rhythm GI/Abdominal Exam: Normal Bowel Sounds, Soft, Non-Tender Extremities: Normal Inspection, Normal Range of Motion, Non-Tender, No Pedal Edema Skin: Warm, Dry, Intact Wound/Incisions: Healing Well Neurological: No New Focal Deficit Psy/Mental Status: Alert, Normal Affect, Normal Mood - Problem List & Annotations (1) Normal spontaneous vaginal delivery SNOMED Code(s): 21981041, 832588938 Code(s): O80 - ENCOUNTER FOR FULL-TERM UNCOMPLICATED DELIVERY Status: Acute Current Visit: Yes - Problem List Review Problem List Initiated/Reviewed/Updated: Yes - Assessment Assessment:: 26-year-old s/p uncomplicated spontaneous vaginal delivery. hbg 11.5. no new concerns. - Plan Plan:: * Likely discharge today * Recommended she discuss concerns with seam feller or Dr. Fine. * Continue to monitor bleeding * Encourage ambulation * Blood type O+, Rubella immune, and GBS negative <Ashley Fine - Last Filed: 07/08/21 08:37> - Patient Data Vital Signs - Most Recent: Last Vital Signs Temp 36.9 C 07/08/21 08:00 Pulse 81 07/08/21 08:00 Resp 18 07/08/21 08:00 BP 140/80 07/08/21 08:00 Pulse Ox 95 07/08/21 08:00 Lab Results - Last 24 Hours: Laboratory Results - last 24 hr 07/08/21 Range/Units 04:35 Hgb 11.5 L (12.0-16.0) g/dL Hct 35.5 L (36.0-46.0) % Med Orders - Current: Current Medications Acetaminophen (Acetaminophen 500 Mg Tab) 1,000 mg PO Q6H PRN PRN Reason: Pain (mild 1-3) Last Admin: 07/08/21 05:24 Dose: 1,000 mg Documented by: Benzocaine/Menthol (Benzocaine/Menthol 20%-0.5% [place] 78 Gm Cannister) 78 gm TOP ASDIRECTED PRN PRN Reason: Perineal Comfort Measure Last Admin: 07/07/21 03:43 Dose: 1 canister Documented by: Bisacodyl (Bisacodyl 10 Mg Supp) 10 mg RECTAL ONETIME PRN PRN Reason: Constipation Butorphanol Tartrate (Butorphanol 1 Mg/Ml Sdv) 1 mg IVPUSH Q1H PRN PRN Reason: Pain (severe 7-10) Carboprost Tromethamine (Carboprost Tromethamine 250 Mcg/1 Ml Amp) 250 mcg IM ASDIRECTED PRN PRN Reason: Post Hemorrhage Docusate Sodium (Docusate Sodium 100 Mg Cap) 100 mg PO Q12H PRN PRN Reason: Constipation Emollient Ointment (Lanolin 100% Cream 7 Gm Tube) 0 gm TOP ASDIRECTED PRN PRN Reason: Sore Nipples Last Admin: 07/07/21 03:42 Dose: 1 tube Documented by: Oxytocin/Sodium Chloride (Oxytocin 30 Unit/500 Ml-Ns) 30 unit in 500 mls @ 999 mls/hr IV TITRATE [facility] Last Admin: 07/07/21 01:54 Dose: 999 mls/hr Documented by: Tranexamic Acid 1,000 mg/ (Sodium Chloride) 110 mls @ 660 mls/hr IV ONETIME PRN PRN Reason: Bleeding Lactated Ringer's (Ringers, Lactated) 1,000 mls @ 150 mls/hr IV ASDIRECTED [facility] Last Admin: 07/07/21 01:40 Dose: 999 mls/hr Documented by: Ibuprofen (Ibuprofen 800 Mg Tab) 800 mg PO Q8H PRN PRN Reason: Pain (mild 1-3) Last Admin: 07/08/21 05:21 Dose: 800 mg Documented by: Lidocaine HCl (Lidocaine 1% 50 Ml Mdv) 50 ml INJECT ONETIME PRN PRN Reason: Laceration repair Last Admin: 07/07/21 02:03 Dose: 50 ml Documented by: Methylergonovine Maleate (Methylergonovine 0.2 Mg/1 Ml Amp) 0.2 mg IM ASDIRECTED PRN PRN Reason: Post Hemorrhage Misoprostol (Misoprostol 200 Mcg Tab) 200 mcg PO ONETIME PRN PRN Reason: Post Hemorrhage Nalbuphine HCl (Nalbuphine 10 Mg/1 Ml Vial) 10 mg IVPUSH Q1H PRN PRN Reason: Pain (severe 7-10) Ondansetron HCl (Ondansetron 4 Mg/2 Ml Sdv) 4 mg IVPUSH Q4H PRN PRN Reason: Nausea/Vomiting Oxycodone HCl (Oxycodone 5 Mg Tab) 5 mg PO Q2H PRN PRN Reason: Pain (severe 7-10) Sodium Chloride (Sodium Chloride 0.9% 10 Ml Syringe) 10 ml FLUSH ASDIRECTED PRN PRN Reason: Keep Vein Open Sodium Chloride (Sodium Chloride 0.9% 2.5 Ml Syringe) 2.5 ml FLUSH ASDIRECTED PRN PRN Reason: Keep Vein Open Sodium Chloride (Sodium Chloride 0.9% 10 Ml Sdv) 10 ml IV ASDIRECTED PRN PRN Reason: IV Use Sterile Water (Water For Irrigation,Sterile 1,000 Ml Container) 1,000 ml IRR ASDIRECTED PRN PRN Reason: delivery Witch Ana (Witch Ana Medicated Pads 40/Jar) 1 pad TOP ASDIRECTED PRN PRN Reason: comfort care Last Admin: 07/07/21 03:42 Dose: 1 tub Documented by: Discontinued Medications Oxytocin/Sodium Chloride (Oxytocin 30 Unit/500 Ml-Ns) Confirm Administered Dose 30 unit in 500 mls @ as directed .ROUTE .STK-MED ONE Stop: 07/07/21 01:48 Last Admin: 07/08/21 07:17 Dose: Not Given Documented by: Ibuprofen (Ibuprofen 800 Mg Tab) Confirm Administered Dose 800 mg .ROUTE .STK- MED ONE Stop: 07/07/21 02:19 Last Admin: 07/08/21 07:18 Dose: Not Given Documented by: - Problem List Review Problem List Initiated/Reviewed/Updated: Yes - Assessment Assessment:: Patient seen and examined by me and discharge instructions reviewed. Deferred questions to seam feller.
[2021-07-08] MEDS: Witch Hazel Medicated Pads 40/Jar TOP PRN (12:28)
[2021-07-09] MEDS: Acetaminophen 500 MG Tab PO PRN ×2 (02:27→09:55)
[2021-07-09] MEDS: Ibuprofen 800 MG Tab PO PRN (02:28)
[2021-07-09 07:38] VITALS: BP 144/69; PULSE 83
--- NOTE | 2021-07-09 07:48 | PCM.PNPP ---
- General Info Date of Service: 07/09/21 Admission Dx/Problem (Free Text): Labor Subjective Update: No overnight concerns. Pain controlled. Ambulating, eating, and urinating well. Stressed due to poor . Functional Status: Reports: Pain Controlled, Tolerating Diet, Ambulating, Urinating - Review of Systems General: Reports: No Symptoms HEENT: Reports: Headaches Pulmonary: Reports: No Symptoms Cardiovascular: Reports: No Symptoms Gastrointestinal: Reports: No Symptoms Genitourinary: Reports: No Symptoms Musculoskeletal: Reports: No Symptoms Skin: Reports: No Symptoms Neurological: Reports: No Symptoms Psychiatric: Reports: No Symptoms - General Info Date of Service: 07/09/21 - Patient Data Vital Signs - Most Recent: Last Vital Signs Temp 36.6 C 07/09/21 07:37 Pulse 83 07/09/21 07:37 Resp 16 07/09/21 07:37 BP 144/69 H 07/09/21 07:37 Pulse Ox 97 07/09/21 07:37 Weight - Most Recent: 120.202 kg Lab Results - Last 24 Hours: Laboratory Results - last 24 hr 07/07/21 Range/Units 01:55 RPR Non-Reac (Non-Reac) Med Orders - Current: Current Medications Acetaminophen (Acetaminophen 500 Mg Tab) 1,000 mg PO Q6H PRN PRN Reason: Pain (mild 1-3) Last Admin: 07/09/21 02:27 Dose: 1,000 mg Documented by: Benzocaine/Menthol (Benzocaine/Menthol 20%-0.5% Arnold 78 Gm Cannister) 78 gm TOP ASDIRECTED PRN PRN Reason: Perineal Comfort Measure Last Admin: 07/07/21 03:43 Dose: 1 canister Documented by: Bisacodyl (Bisacodyl 10 Mg Supp) 10 mg RECTAL ONETIME PRN PRN Reason: Constipation Butorphanol Tartrate (Butorphanol 1 Mg/Ml Sdv) 1 mg IVPUSH Q1H PRN PRN Reason: Pain (severe 7-10) Carboprost Tromethamine (Carboprost Tromethamine 250 Mcg/1 Ml Amp) 250 mcg IM ASDIRECTED PRN PRN Reason: Post Hemorrhage Docusate Sodium (Docusate Sodium 100 Mg Cap) 100 mg PO Q12H PRN PRN Reason: Constipation Emollient Ointment (Lanolin 100% Cream 7 Gm Tube) 0 gm TOP ASDIRECTED PRN PRN Reason: Sore Nipples Last Admin: 07/07/21 03:42 Dose: 1 tube Documented by: Oxytocin/Sodium Chloride (Oxytocin 30 Unit/500 Ml-Ns) 30 unit in 500 mls @ 999 mls/hr IV TITRATE [facility] Last Admin: 07/07/21 01:54 Dose: 999 mls/hr Documented by: Tranexamic Acid 1,000 mg/ (Sodium Chloride) 110 mls @ 660 mls/hr IV ONETIME PRN PRN Reason: Bleeding Lactated Ringer's (Ringers, Lactated) 1,000 mls @ 150 mls/hr IV ASDIRECTED [facility] Last Admin: 07/07/21 01:40 Dose: 999 mls/hr Documented by: Ibuprofen (Ibuprofen 800 Mg Tab) 800 mg PO Q8H PRN PRN Reason: Pain (mild 1-3) Last Admin: 07/09/21 02:28 Dose: 800 mg Documented by: Lidocaine HCl (Lidocaine 1% 50 Ml Mdv) 50 ml INJECT ONETIME PRN PRN Reason: Laceration repair Last Admin: 07/07/21 02:03 Dose: 50 ml Documented by: Methylergonovine Maleate (Methylergonovine 0.2 Mg/1 Ml Amp) 0.2 mg IM ASDIRECTED PRN PRN Reason: Post Hemorrhage Misoprostol (Misoprostol 200 Mcg Tab) 200 mcg PO ONETIME PRN PRN Reason: Post Hemorrhage Nalbuphine HCl (Nalbuphine 10 Mg/1 Ml Vial) 10 mg IVPUSH Q1H PRN PRN Reason: Pain (severe 7-10) Ondansetron HCl (Ondansetron 4 Mg/2 Ml Sdv) 4 mg IVPUSH Q4H PRN PRN Reason: Nausea/Vomiting Oxycodone HCl (Oxycodone 5 Mg Tab) 5 mg PO Q2H PRN PRN Reason: Pain (severe 7-10) Sodium Chloride (Sodium Chloride 0.9% 10 Ml Syringe) 10 ml FLUSH ASDIRECTED PRN PRN Reason: Keep Vein Open Sodium Chloride (Sodium Chloride 0.9% 2.5 Ml Syringe) 2.5 ml FLUSH ASDIRECTED PRN PRN Reason: Keep Vein Open Sodium Chloride (Sodium Chloride 0.9% 10 Ml Sdv) 10 ml IV ASDIRECTED PRN PRN Reason: IV Use Sterile Water (Water For Irrigation,Sterile 1,000 Ml Container) 1,000 ml IRR ASDIRECTED PRN PRN Reason: delivery Witch Ana (Witch Ana Medicated Pads 40/Jar) 1 pad TOP ASDIRECTED PRN PRN Reason: comfort care Last Admin: 07/08/21 12:28 Dose: 1 tub Documented by: Discontinued Medications Oxytocin/Sodium Chloride (Oxytocin 30 Unit/500 Ml-Ns) Confirm Administered Dose 30 unit in 500 mls @ as directed .ROUTE .STK-MED ONE Stop: 07/07/21 01:48 Last Admin: 07/08/21 07:17 Dose: Not Given Documented by: Ibuprofen (Ibuprofen 800 Mg Tab) Confirm Administered Dose 800 mg .ROUTE .STK- MED ONE Stop: 07/07/21 02:19 Last Admin: 07/08/21 07:18 Dose: Not Given Documented by: - Recovery Exam Fundal Tone: Firm Fundal Placement: Midline Other Perinuem Description: 2nd degree laceration. Episiotomy/Laceration: Approximated Bladder Status: Voiding Urinary Elimination: Voided - Exam General: Alert, Oriented HEENT: Pupils Equal, Pupils Reactive, EOMI Neck: Supple Lungs: Clear to Auscultation, Normal Respiratory Effort Cardiovascular: Regular Rate, Regular Rhythm GI/Abdominal Exam: Normal Bowel Sounds, Soft, Non-Tender, No Distention Extremities: Normal Inspection, Normal Range of Motion, Non-Tender, No Pedal Edema Skin: Warm, Dry, Intact Wound/Incisions: Healing Well Neurological: No New Focal Deficit Psy/Mental Status: Alert, Normal Affect, Normal Mood - Problem List & Annotations (1) Normal spontaneous vaginal delivery SNOMED Code(s): 94937773, 737044189 Code(s): O80 - ENCOUNTER FOR FULL-TERM UNCOMPLICATED DELIVERY Status: Acute Current Visit: Yes - Problem List Review Problem List Initiated/Reviewed/Updated: Yes - Assessment Assessment:: 26-year-old PPD #3 s/p uncomplicated spontaneous vaginal delivery. hbg 11.5 on 07/08. no new concerns. Bp: 144/69, occasional headaches overnight. Denies other symptoms. - Plan Plan:: * Discharge pending body masker clearance * Recommended she discuss concerns with body masker. * Continue to monitor bleeding * Encourage ambulation * Blood type O+, Rubella immune, and GBS negative
[2021-07-09] MEDS: Witch Hazel Medicated Pads 40/Jar TOP PRN (12:44)
[2021-07-09] MEDS: Benzocaine/Menthol 20%-0.5% Spray 78 GM Cannister TOP PRN (12:44)
== END 2021-07-09 13:05 | disposition home or self-care (01) | DRG 807 ==
LOC: MW.OB 00:35 → MW.OBCHECK 00:35 → MW.OB 01:37 → OBSVTOIN 01:51 → MW.OB 05:45
PROVIDERS: ADMIT Obstetrics & Gynecology; ATTEND Obstetrics & Gynecology
PROC: 10E0XZZ Delivery of Products of Conception, External Approach (ICD-10-PCS; principal; 2021-07-07)
PROC: 0KQM0ZZ Repair Perineum Muscle, Open Approach (ICD-10-PCS; 2021-07-07)
DX: O99.214 Obesity complicating childbirth (principal); Z37.0 Single live birth; O70.1 Second degree perineal laceration during delivery; Z3A.39 39 weeks gestation of pregnancy; Z20.822 Contact with and (suspected) exposure to COVID-19
CPT/HCPCS: 36415; 59025; 59409; 85014; 85018; 85027; 86592; 86850; 86900; 86901; A9270-GY; J2001; J2590; J7120; U0002